=== PATIENT | male | born 1950 | race Caucasian/White ===

== ENCOUNTER 2016-10-16 09:46 | Observation (INO) | payer MEDICARE, BC ==
[~2016-10-16] VITALS: Ht 177.8 cm; Wt 129.0 kg
--- NOTE | ~2016-10-16 | ESTC ---
Cardiac Perfusion Imaging Demographics Patient Name JAH BOONE Gender Male Patient Number [id number] Race Visit Number [id number] Ethnicity Corporate ID Room Number G6301 Accession Number [id number] Height 70 inches Date of 1950 Weight 284 pounds Interpreting Austin Sung Date of study 10/17/2016 Physician Supervising /TAYLOR FLORES Technologist Darío Bass Ordering Physician Sagar Saha Stress Zohra MARTINEZT, A denture laboratory technician RDCS Stress ECG Reading Jed Perez APRN Nurse Carter Block Physician RN Medications Reviewed with Patient prior to Procedure. Procedure Procedure Type: Nuclear Stress Test:Pharmacological, Lexiscan, Cardiolite Stress Test Procedure Start time: 10/17/2016 07:30 Indications: AAA and Dyspnea. Risk Factors The patient risk factors include:former tobacco use, family history of premature CAD, Newly diagnoseddiabetes mellitus, chronic lung disease, dyslipidemia and prior SD . Conclusions Summary Perfusion Images: The overall quality of the study is fair, due to soft tissue attenuation. Left ventricular cavity is noted to be normal on the stress and rest studies. The right ventricle is not visualized and cannot be assessed. Stress SPECT images and Rest SPECT images demonstrate homogenous tracer distribution throughout the myocardium except for a moderate decrease uptake in the area involving the inferior wall consistent with soft tissue attenuation. Gated SPECT imaging reveals normal myocardial thickening and wall motion. The left ventricular ejection fraction was calculated to be 55%. Impression ECG portion of stress test is clinically negative for ischemia by diagnostic criteria. The inferior wall matched defect is consistent with soft tissue attenuation Overall left ventricular systolic function was normal without regional wall motion abnormalities. The findings were discussed with Dr. Petersen. Stress Protocols Resting ECG Normal sinus rhythm. Pre-stress physical exam: Patient assessed by Gayatri FELIPE prior to testing. Predicted HR: 153 bpm HR response: Appropriate BP response: Appropriate Reason for termination:Infusion complete ECG Findings No ECG changes suggestive of ischemia. Arrhythmias No rhythm abnormality. Symptoms Shortness of breath. Complications Procedure complication: None. Stress Interpretation Appropriate hemodynamic response to Lexiscan. No significant ST-T wave changes with Lexiscan. ECG portion is negative for ischemia by diagnostic criteria. Will correlate with nuclear images. Imaging Results Summed scores - Summed stress score: 2 - Summed rest score: 3 - Summed difference score: -1 Stress ejection Ejection fraction:55 % EDV :108 ml ESV :49 ml Stroke volume :59 ml LV mass :132 gr Imaging Protocols Rest Stress Isotope:Tc99m Sestamibi IV Isotope: Tc99m Sestamibi IV Isotope dose:14.9 mCi Isotope dose:46.3 mCi Date:10/17/2016 07:23 Date:10/17/2016 09:07 Technique: SPECT Technique: Gated Supine SPECT Supine IV remains in place after procedure. Scan Time:45-60 minutes post Scan Time:45-60 minutes post injection injection Procedure Medications - Regadenoson (Lexiscan) 0.4 mg IV over 10-15 sec. I.V. 0.4 mg. Medical History Admission Data Admission date: 10/16/2016 Admission Time: 09:46 Hospital Status: Inpatient. Signatures dtt: JOANIE ADAM dtd: 10/17/16 0730 Physician Self Edit
--- NOTE | ~2016-10-16 | CON ---
PATIENT'S NAME: [facility]AH [facility] AGE: 65 Y [address] ROOM: [place] [address] LOCATION: GPCU ADMIT DATE: 10/16/2016 Consultation DISCHARGE DATE: FAMILY PHYSICIAN: PHYSICIAN, UNKNOWN ATTENDING PHYSICIAN: AUGUSTINA MAYER V DATE OF CONSULTATION: 10/16/2016 REFERRING PHYSICIAN: Joel Keith MD REFERRING PHYSICIAN: Augustina Mayer MD. REASON FOR CONSULT: Exertional chest discomfort. HISTORY OF PRESENT ILLNESS: Mr. Victoria is a very pleasant 65-year-old male who has been symptomatic since 4-6 weeks with complaints of exertional chest discomfort. The patient stated that he gets chest tightness even with minimal activity. Also complained of shortness of breath on exertion, especially worse since 1-2 months. The patient stated that he had abdominal surgery about a year ago, and since then, he has not been very active physically. He denied any cough, expectoration, or fever. He had a CT scan at local hospital which showed thoracic aortic aneurysm. He was referred here for further management. REVIEW OF SYSTEMS: The patient denied any recent change in vision. No history of nausea or vomiting. No diarrhea or constipation. No history of fever. No history of cough or expectoration. No history of syncope. History of chest pain and shortness of breath on exertion is present. Review of other systems was essentially negative. PAST MEDICAL HISTORY: Gastroesophageal reflux disease, COPD on inhalers, asthma, he was also hospitalized for pneumonia in August 2015. PAST SURGICAL HISTORY: Appendectomy, cholecystectomy, abdominal resection 2006 and in August 2015. CURRENT MEDICATIONS: See medical record. PERSONAL HISTORY: He quit smoking about 2 years ago. He used to smoke a half to one and half packs of cigarettes per day. Nonalcoholic. PATIENT'S NAME: JAH [facility] AGE: 65 Y [address] ROOM: [place] [address] LOCATION: GPCU ADMIT DATE: 10/16/2016 Consultation DISCHARGE DATE: FAMILY PHYSICIAN: PHYSICIAN, UNKNOWN ATTENDING PHYSICIAN: AUGUSTINA MAYER V FAMILY HISTORY: His both parents had coronary artery disease. His mother had coronary artery disease in her 80s and his father had coronary artery disease in his 70s. SOCIAL HISTORY: The patient is and lives with his . 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 PHYSICAL EXAMINATION: GENERAL: He is awake, alert, and oriented and in no distress. VITAL SIGNS: His pulse rate is 90 per minute, blood pressure is 159/72 mmHg, respiratory rate 20, temperature 97.8. HEENT: His head is atraumatic and normocephalic. He is afebrile. Mucous membrane is wet. NECK: No significant cervical lymphadenopathy is present. No jugular venous distention is present. LUNGS: Clear to auscultation. Breath sounds are diminished at bases. HEART: S1, S2 are audible. They are regular in rate and rhythm with no audible murmur. ABDOMEN: Scar nolasco from previous surgeries are present. Mildly distended. Mild tenderness is present in the right upper quadrant. Bowel sounds are present. EXTREMITIES: Showed no significant pedal edema. LABORATORY DATA: Done at [facility], showed CK 296. CK-MB 2.3. Troponin less than 0.04. Total cholesterol 196, triglycerides 565, HDL 29, LDL 80, AST 66, ALT is 75, TSH 1.73. PSA is 1.06. White blood cell count 7.4, hemoglobin 14.6, platelet count 209. ProBNP is 29. Chest x-ray showed lung hyperinflation suggesting chronic obstructive pulmonary disease. No consolidation was noted on 10/15/2016. ASSESSMENT AND PLAN: 1. Exertional chest discomfort and tightness. The patient has coronary artery disease risk factors including hyperlipidemia, family history of coronary artery disease, obesity, diabetes, and history of tobacco dependence. We will obtain 2D echocardiogram to evaluate left ventricular function and stress test in a.m. He was counseled on coronary artery disease risk factor modification. 2. Hypertriglyceridemia. We will start the patient on fibrates. The patient has mild abnormality in liver function tests which possibly could be secondary to fatty liver. He will need monitoring of liver function tests. 3. Diabetes. PATIENT'S NAME: MELY VICTORIA [facility] AGE: 65 Y [address] ROOM: [place] [address] LOCATION: GPCU ADMIT DATE: 10/16/2016 Consultation DISCHARGE DATE: FAMILY PHYSICIAN: PHYSICIAN, UNKNOWN ATTENDING PHYSICIAN: AUGUSTINA MAYER V 4. Obesity. 5. Chronic obstructive pulmonary disease. 6. Abnormal liver function tests. 7. History of thoracic aortic aneurysm. 8. Hypertension. We will monitor patient on telemetry. We will start the patient on beta blockers and titrate dose as needed for blood pressure control. We will also start patient on aspirin since patient has diabetes. We will make further recommendations depending on the results of EKG, echocardiogram, and stress test. We will follow the patient along with you. Thank you for allowing us in taking part in the care of this pleasant patient. MD SUE MYERS/charlee /[id number] d: 10/16/16 1428 t: 10/23/16 1602, CONSULTATION REPORT
--- NOTE | ~2016-10-16 | HP ---
PATIENT'S NAME: MELY TYSON [facility] AGE: 65 Y [address] ROOM: [address] [place], [place] [address] LOCATION: GPCU ADMIT DATE: 10/16/2016 History & Physical DISCHARGE DATE: FAMILY PHYSICIAN: PHYSICIAN, UNKNOWN ATTENDING PHYSICIAN: AUGUSTINA MAYER V DATE OF SERVICE: CHIEF COMPLAINT: Shortness of breath. HISTORY OF PRESENT ILLNESS: The patient is a transfer from [facility]. This is a 65-year-old gentleman who carries a past medical history of COPD diagnosed several years ago, though apparently never had PFTs done. He presented to [facility] yesterday with complaints of worsening dyspnea on exertion. The patient reports that he has been having progressive shortness of breath, and at this point, he can only walk very minimal amounts without developing shortness of breath. The patient also admits that he has occasionally developed chest tightness when he walks for an extended period of time. It should be noted, that he has been quite sedentary recently and has gained 40 pounds after undergoing an abdominal surgery. He was told to minimize his activity, that was a hernia surgery. A workup at the outside facility included an ambulatory heart rate and pulse oximetry monitoring which showed that the patient that after having walked 60- 80 feet, the patient's heart rate jumped into 130s, though his oxygen saturations remained in mid 90s and he was quite symptomatic. I was able to replicate those findings here after the patient walked approximately 160 feet. He was tachycardic into 120s, but his saturations were was 96%. He has never had a stress test, formal PFTs, or an echocardiogram recently. He denies any fevers or chills. No nausea, vomiting, or diarrhea. He does admit to occasional lower extremity edema associated with eating salty foods. When I asked the patient about a raspy voice, he reports that he has been having a raspy voice for the last 3 days. At the outside facility, the patient was started on treatment for COPD with Solu-Medrol and Levaquin. He also had a CAT scan of his chest to rule out a PE. That was negative and demonstrated a 4.3 cm ascending aortic aneurysm. The remainder of his lab work up was unremarkable with a negative proBNP, normal electrolytes, and an EKG showing sinus tachycardia with right bundle- branch block. PATIENT'S NAME: JAH [facility] AGE: 65 Y [address] ROOM: [place] [address] LOCATION: GPCU ADMIT DATE: 10/16/2016 History & Physical DISCHARGE DATE: FAMILY PHYSICIAN: PHYSICIAN, UNKNOWN ATTENDING PHYSICIAN: AUGUSTINA MAYER V REVIEW OF SYSTEMS: All systems have been reviewed and are negative aside for pertinent positives as mentioned above. PAST MEDICAL HISTORY: 1. Recently diagnosed type 2 diabetes. 2. COPD. 3. Obstructive sleep apnea, on CPAP at 11 cm of water. 4. Recently diagnosed hypertension. PAST SURGICAL HISTORY: Significant for several hernia repairs with mesh in place. SOCIAL HISTORY: The patient carries approximately 25-pack years of tobacco use and quit several years ago. 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 FAMILY HISTORY: Significant for coronary artery disease of late onset on both sides of his family. CURRENT MEDICATIONS: Include, 1. Spiriva. 2. Symbicort. 3. Metformin. 4. Levaquin. 5. Solu-Medrol. 6. Loratadine. 7. Albuterol p.r.n. 8. Omeprazole. PHYSICAL EXAMINATION: VITAL SIGNS: His blood pressure is 130s over 80s. Heart rate is in the 90s and regular, but does go up to 120s with mild ambulation. Saturating 96% on room air. Afebrile. Respirations are 16, going up into high 20s with ambulation. GENERAL: Appears as a morbidly obese, elderly male, in no acute distress. EYES: Pupils are equal and reactive to light. LYMPHATIC: Shows no cervical lymphadenopathy. ENT: Reveals no stridor. ENDOCRINE: Shows no thyromegaly. LUNGS: Clear to auscultation in all cochran. HEART: Shows regular rate and rhythm without appreciable murmurs, gallops, or PATIENT'S NAME: JAH [facility] AGE: 65 Y [address] ROOM: [place] [address] LOCATION: GPCU ADMIT DATE: 10/16/2016 History & Physical DISCHARGE DATE: FAMILY PHYSICIAN: PHYSICIAN, UNKNOWN ATTENDING PHYSICIAN: AUGUSTINA MAYER V rubs. NECK: JVD cannot be appreciated. EXTREMITIES: There is no lower extremity edema. GI: Reveals abdomen is soft, nontender, nondistended. : Reveals no costovertebral angle tenderness. VASCULAR: Reveals 2+ pedal pulses. MUSCULOSKELETAL: Shows unremarkable muscles and joints. SKIN: Warm and dry. PSYCHIATRIC: Reveals appropriate mood, cognition, and affect. DIAGNOSTIC DATA: Studies from the outside facility significant for an EKG which shows sinus tachycardia in 111 with right bundle-branch block, but no ST-segment or T-wave abnormalities. Lab results are significant for a hemoglobin A1c of 7.7, TSH of 1.73, mildly elevated LFTs, uric acid 9.4. Negative cardiac enzymes. ProBNP of 29. A CT of his chest with contrast, which demonstrates a 4.3 cm ascending aortic aneurysm. ASSESSMENT AND PLAN: This is a 65-year-old male who is being admitted with dyspnea on exertion, exertional chest pain, and exertional tachycardia. The underlying etiology for his presentation at this point remains unclear. Given the presence of a raspy voice, he might have some sort of a vocal cord dysfunction and we will request an ENT consultation. We will get a 2-dimensional echocardiogram. Given the presence of exertional chest pain, we will get an exercise stress test as he has never had one and he has multiple risk factors for coronary artery disease. We will also monitor him on telemetry and a cardiology consultation has already been requested in transfer. History of chronic obstructive pulmonary disease. The patient has never had formal PFTs and I think he will benefit from those. However at this point, he has received steroids as well as antibiotics and is on bronchodilators and I believe that at this point, pulmonary function test may not be helpful. Once his inpatient workup is complete, we will consider a further pulmonary evaluation. Recently diagnosed diabetes. We will hold off on patient's metformin as he did have a CT with contrast. We will put him on a sliding scale for the time being. Additional management will depend on clinical course Time dedicated to this patient's encounter is 35 minutes. PATIENT'S NAME: MELY TYSON [facility] AGE: 65 Y [address] ROOM: [place] [address] LOCATION: GPCU ADMIT DATE: 10/16/2016 History & Physical DISCHARGE DATE: FAMILY PHYSICIAN: PHYSICIAN, UNKNOWN ATTENDING PHYSICIAN: AUGUSTINA MAYER V MD TABITHA DYKES/modl /[id number] D: [id number] T: [id number] HISTORY & PHYSICAL
--- NOTE | ~2016-10-16 | DS ---
PATIENT'S NAME: MELY TYSON [facility] AGE: 65 Y [address] ROOM: [address] [place] [address] LOCATION: GPCU ADMIT DATE: 10/16/2016 Discharge Summary DISCHARGE DATE: 10/17/2016 FAMILY PHYSICIAN: Justina Sullivan APRN ATTENDING PHYSICIAN: Werner Petersen V DISCHARGE DIAGNOSES: 1. Chest pain. 2. Dyspnea on exertion. 3. Efo-rrnbqyo-mrtztcgnb diabetes mellitus. 4. Morbid obesity. 5. Asthma/chronic obstructive pulmonary disease. 6. Reflux. REASON FOR ADMISSION: "I just couldn't get my breath." Because of his risk factors and the chest pain, he got a stress test today, which was negative suggesting that most of his symptoms may have been from his lung disease. He and I spoke for a period of time and it sounds like lack of exercise and increasing appetite is the biggest reason for his weight gain and his diabetic diagnosis, and so we discussed changes in his medical regimen, which will be reflected in the nursing med recon form. LABORATORY DATA: Accu-Cheks have all been under 200 and above 100. Electrolytes were fine. His kidney function was normal with GFR greater than 60. ProBNP was normal. Hemoglobin A1c was 7.6. He had a Cardiolite stress test with Dr. Avila. Overall quality of the study was fair with normal left ventricular function and some soft tissue attenuation was the only finding. The EKG portion of the stress test was completely normal. DISCHARGE INSTRUCTIONS: At discharge, activity will be increased as tolerated. He is to treat his asthma/COPD aggressively to avoid shortness of breath and he already treats his reflux. Diet will be low carb consistent with diabetic recommendations. MEDICATIONS: Per the nursing med recon form. FOLLOWUP: Will be with his primary doctors at the [facility] and anybody he can see up at [facility] in [place], [place]. Currently, he also has a physician in [place], so we will have him decide whom he wants to see long- term and stay with them. Discharge preparations took > 30 minutes. PATIENT'S NAME: MELY TYSON [facility] AGE: 65 Y [address] ROOM: [address] [address] LOCATION: GPCU ADMIT DATE: 10/16/2016 Discharge Summary DISCHARGE DATE: 10/17/2016 FAMILY PHYSICIAN: Justina Sullivan APRN ATTENDING PHYSICIAN: Werner Petersen MD CCWinnie/modl /[id number] d: 10/18/16 0414 t: 10/18/16 0824, DISCHARGE SUMMARY
--- NOTE | ~2016-10-16 | ECHO ---
Transthoracic Echocardiography Report (TTE) Demographics Patient Name MELY TYSON Date of Study 10/16/2016 Patient Number [id number] Visit Number [id number] Date of 1950 Room Number G6301 Gender Male Number Age 65 year(s) Referring Nicola Caldera V Telecommunications Engineer Karma Weir, Physician RT,RVT,RDCS Ayaz Howard Physician Interpreting Sagar Saha Duty Manager Physician Leopoldo PERRY Supervising Ordering Nicola West MD/MLP Physician Nurse Stress Elementary Math Tutor Conclusions Contractility Score Summary Normal Left Ventricular contractility was noted. Summary Technically difficult exam due to body habitus. Definity contrast was administered to better delineate endocardial borders. The estimated left ventricular ejection fraction is 60%. The left ventricle is normal in size . Mild concentric left ventricular hypertrophy. Diastolic assessment reveals Grade II pseudonormal diastolic function . Mildly dilated right ventricle. No significant valvular abnormalities. Procedure Type of Study TTE procedure:2D Echocardiogram, M-Mode, Doppler , Color Doppler, Contrast study. Procedure Date Date: 10/16/2016 Start: 02:58 PM Study Location: Inpatient Portable Technical Quality: Limited visualization due to body habitus. Indications:Dyspnea with exertion. Appropriate Use Criteria: 9 Patient Status: Routine Contrast Medium: Definity. Amount - 3 ml HR: 89 bpm BP: 136/63 mmHg M-Mode/2D Measurements LV Diastolic Dimension: 4.43 cm LV Systolic Dimension: 2.83 cm LV Septum Diastolic: 1.23 cm LV PW Diastolic: 1.21 cm AO Root Dimension: 3.2 cm Cardiac Output: 6.43 l/min LA Dimension: 3.8 cm LVOT: 2 cm LVOT VTI: 23 cm RV Base: 4.53 cm LV Stroke volume: 72.22 ml RV Length: 7.27 cm TAPSE: 2.88 cm TDI-S': 9.87 cm/s Doppler Measurements AV Peak Velocity: 1.46 m/s MV Peak E-Wave: 0.99 m/s AV Peak Gradient: 8.53 mmHg MV Peak A-Wave: 0.89 m/s AV Mean Gradient: 6 mmHg MV E/A Ratio: 1.11 LVOT Peak Velocity: 1.26 m/s MV P1/2t: 70 msec MV Deceleration Time: 243 msec TR Gradient:23.04 mmHg PV Peak Velocity: 1.19 m/s Estimated RAP:8 mmHg PV Peak Gradient: 5.66 mmHg Estimated RVSP: 31 mmHg Estimated PASP: 31.04 mmHg E' Septal Velocity: 0.07 m/s A' Septal Velocity: 0.1 m/s E' Lateral Velocity: 0.06 m/s A' Lateral Velocity: 0.1 m/s Findings Left Ventricle The left ventricle is normal in size . Mild concentric left ventricular hypertrophy. Diastolic assessment reveals Grade II pseudonormal diastolic function . Right Ventricle Mildly dilated right ventricle. Normal right ventricular function. Left Atrium Normal left atrial size. Right Atrium Normal right atrial size. Unable to visualize IVC due to poor acoustical window. Mitral Valve Mild mitral annular calcification. Aortic Valve Normal aortic valve structure and function. Tricuspid Valve Normal tricuspid valve structure and function. Trivial tricuspid regurgitation by color Doppler. Pulmonic Valve The pulmonic valve is not well visualized. Pericardial Effusion No evidence of pericardial effusion. Miscellaneous Visualized portions of the aortic root and ascending aorta appear normal in size. Pleural Effusion No evidence of pleural effusion. Contractility Score LV regional wall motion:(0-Non visualized 1-Normal 2-Hypokinesis 3-Akinesis 4-Dyskinesis 5-Aneurysm) Signature dtt: Joel Keith dtd: 10/16/16 4982 Physician Self Edit
--- NOTE | ~2016-10-16 | CON ---
PATIENT'S NAME: [facility] AGE: 65 Y [address] ROOM: [address] [address] LOCATION: GPCU ADMIT DATE: 10/16/2016 Consultation DISCHARGE DATE: FAMILY PHYSICIAN: PHYSICIAN, UNKNOWN ATTENDING PHYSICIAN: AUGUSTINA MAYER V DATE OF CONSULTATION: 10/16/2016 REFERRING PHYSICIAN: Joel Keith MD CHIEF COMPLAINT: Hoarseness. HISTORY OF PRESENT ILLNESS: The patient is a 65-year-old gentleman admitted to [facility] with aortic aneurysm. The patient has had voice change. He is a nonsmoker. Denies other head or neck complaints such as difficulty or pain with swallowing, coughing up blood, or ear pain. PAST MEDICAL HISTORY: Documented and reviewed in the chart. SOCIAL HISTORY: Documented and reviewed in the chart. FAMILY HISTORY: Documented and reviewed in the chart. REVIEW OF SYSTEMS: Documented and reviewed in the chart. PHYSICAL EXAMINATION: GENERAL: A pleasant, 65-year-old gentleman. HEENT: Head is otherwise atraumatic and normocephalic. Ears are clear. Nasal mucosa is intact. There is a septal deviation to the left. Oral cavity including lips, gums, tongue, buccal mucosa, tonsillar fossa clear. NECK: No cervical adenopathy, thyromegaly, or thyroid region abnormality. PROCEDURE NOTE: 4% lidocaine spray was used to anesthetize the right side of the nose. The scope was introduced into the right nasal cavity and passed into the nasopharynx, which was clear. The hypopharynx was clear. Vocal cords were mobile. No lesions or masses were noted. IMPRESSION: Voice change with no identifiable laryngeal abnormality. PATIENT'S NAME: JAH [facility] AGE: 65 Y [address] ROOM: [address] [address] LOCATION: GPCU ADMIT DATE: 10/16/2016 Consultation DISCHARGE DATE: FAMILY PHYSICIAN: PHYSICIAN, UNKNOWN ATTENDING PHYSICIAN: AUGUSTINA MAYER V PLAN: Reflux precautions, reassurance, and see back as needed. JESUS G YOVANNY, MD DGO/modl /[id number] d: 10/16/16 1900 t: 10/23/16 1821, CONSULTATION REPORT
--- NOTE | 2016-10-16 10:57 | NUR ---
Patienti s 65 yo male admitted this am from [facility] with aortic aneurysm. patient is very pleasant to visit with, is hard of hearing but does not use his hearing aides. pt states he has not felt the best for about 2 weeks, states he got a pneumovax shot last week and has been worse ever since. during the night last night he got more short of breath and went to the ER. patient has saline locks in both forearms without erythema or edema noted at sites. patient states it was very difficult for them to get an IV in him, had to poke him several times. Education is given as documented. patient denies questions. pneumatics are on bilat. patient ana well. rests quietly. call light in reach. report is given to ARVIN Chiu.
--- NOTE | 2016-10-16 13:12 | NUR ---
Introducd self and purpose of heart healthy education and care transitions. Patient known to me from admission last year. Calendar given, information reviewed, verbalized understanding. Provided scale, BP cuff, and SpO2 last year by [employer], reports she continues to monitor her VS daily.
[2016-10-16] MEDS ORDERED: CLARITIN10 MG PO (13:55)
[2016-10-16] MEDS ORDERED: SPIRIVA HANDIHA1 KIT INH (13:56)
[2016-10-16] MEDS ORDERED: PROTONIX40 MG PO (13:56)
[2016-10-16] MEDS ORDERED: SYMBICORT 16010.2 GM INH (13:56)
[2016-10-16] MEDS ORDERED: DUONEB INH (13:57)
[2016-10-16] MEDS ORDERED: TYLENOL EXTRA500 MG PO ×2 (13:58)
[2016-10-16] MEDS ORDERED: TYLENOL PM EX-1 EACH PO (13:59)
[2016-10-16] MEDS ORDERED: ADVIL200 MG PO (13:59)
[2016-10-16 14:00] LABS: ANION GAP 17.1 (10.0-19.0); BLOOD UREA NITROGEN 17 mg/dL (6-24); CALCIUM 9.3 mg/dL (8.5-10.5); CHLORIDE 105 mMol/L (96-110); CO2 23 mMol/L (22-32); CREATININE 1.1 mg/dL (0.6-1.3); ESTIMATED GFR (MDRD EQUATION) > 60; MAGNESIUM 2.2 mg/dL (1.3-2.6); PHOSPHORUS 3.2 mg/dL (2.5-4.9); POTASSIUM 4.1 mMol/L (3.7-5.1); SODIUM 141 mMol/L (135-145)
--- NOTE | 2016-10-16 16:16 | NUR ---
Significant Event: AOx3. SBP 130s-150s, tachycardic at times when up walking. VS otherwise WNL on room air. Lungs dim throughout. Bowel sounds hypoactive. C/o discomfort in ambulance per EMS but no c/o pain since arriving. Ate lunch this afternoon. ENT consult for c/o hoarseness and cough. Austin saw and multiple tests ordered for tomorrow. Up ad akira, steady on feet. Ambulates to waiting room to see family and tolerates well. Echo and EKG complete this afternoon. Pleasant and cooperative. Follow up: NPO at midnight for stress test in a.m.
--- NOTE | 2016-10-17 05:04 | NUR ---
Significant Event: Patient is alert/oriented x3. On room air and CPAP at night. Vital signs stable. Denies any pain. Up ad akira in room. NPO since midnight for stress test and abdominal ultrasound today. Follow up: Lexiscan stress test and abdominal ultrasound today.
--- NOTE | 2016-10-17 15:06 | NUR ---
Significant Event: pt had lexiscan today, await results. US abdomen done also today. Pt amb in room and has family here with him. Pt own cpap on when sleeps today. No c/o pain. Dr Avila to read stress and dr Vera attending Follow up:
--- NOTE | 2016-10-17 15:23 | NUR ---
Introduced self and role of care management to pt and . They live up in [facility] and daughter lives in [facility]. Plan is to get the tests done tonite and may or may not go home today. I did explained the TRAMMELL to him and paper signed. At this time plans on home and denies needs.
[2016-10-17] MEDS ORDERED: LOPRESSOR25 MG PO (17:44)
[2016-10-17] MEDS ORDERED: GLUCOPHAGE500 MG PO (17:48)
[2016-10-17] MEDS ORDERED: TRICOR 160 MG160 MG PO (18:00)
--- NOTE | 2016-10-17 18:32 | NUR ---
D-dr martinez ok dc, dr rogers said stress test neg. i-nurse did teaching on all meds with new ones explained, info printed on all meds, rx given, info given on liver and aneurysm, pt took his cpap, ivs dcd by mayda leung, appt to be set by pt, r-pt has no more questions, p-ta took pt to family car
== END 2016-10-17 19:25 | disposition disaster alternative care site (69) ==
LOC: GPCU 09:46
PROVIDERS: ADMIT Internal Medicine
DX: R07.89 Other chest pain (principal); E11.9 Type 2 diabetes mellitus without complications; R06.02 Shortness of breath; J44.9 Chronic obstructive pulmonary disease, unspecified; K21.9 Gastro-esophageal reflux disease without esophagitis; E78.1 Pure hyperglyceridemia; G47.33 Obstructive sleep apnea (adult) (pediatric); I10 Essential (primary) hypertension; R79.89 Other specified abnormal findings of blood chemistry; Z87.891 Personal history of nicotine dependence; Z90.49 Acquired absence of other specified parts of digestive tract; Z98.890 Other specified postprocedural states
CPT/HCPCS: A9500; G0378; J2785; Q9957

== ENCOUNTER 2017-03-30 05:00 | Inpatient (IN) | payer MEDICARE, BC ==
[~2017-03-30] VITALS: Ht 177.8 cm; Wt 121.5 kg
--- NOTE | ~2017-03-30 | DS ---
PATIENT'S NAME: MELY TYSON [facility] AGE: 66 Y [address] ROOM: [address] [place] [id number] LOCATION: [facility] ADMIT DATE: 03/30/2017 Discharge Summary DISCHARGE DATE: 04/03/2017 FAMILY PHYSICIAN: FRAN RAPHAEL APRN ATTENDING PHYSICIAN: Sana Marti CONSULTING PHYSICIANS: Pollo Matute MD, Gastroenterology and Dennis Reinoso MD General Surgery. DISCHARGE DIAGNOSES: 1. Partial small bowel obstruction versus other etiology unknown. 2. Abdominal pain, resolving. 3. Hypertension. 4. Obesity. 5. Obstructive sleep apnea, continuous positive airway pressure compliant. 6. Diabetes type 2. 7. Recent weight loss. DISCHARGE MEDICATIONS: 1. Metoprolol 25 mg p.o. twice daily. 2. Protonix 40 mg p.o. q.d. 3. Spiriva 1 vial INH q.d. 4. Loratadine 10 mg p.o. q.d. p.r.n. seasonal allergies. 5. Symbicort 160/4.5 mcg 2 puffs INH twice daily. 6. DuoNeb 1 vial INH q.i.d. p.r.n. shortness of breath. 7. APAP 1000 mg p.o. q.6 hours p.r.n. pain. 8. APAP 500 mg p.o. q.h.s. 9. Tylenol/diphenhydramine 1 tablet p.o. q.h.s. 10. Metformin 500 mg p.o. twice daily. 11. Tricor 160 mg p.o. twice daily. HISTORY AND HOSPITAL COURSE: Please refer to the admitting H and P dictated by Dr. Marti for more detail on the patient's presentation. The patient was admitted secondary to abdominal pain. White count upon admission was 14.2, hemoglobin 14.2, MCV 92, platelets 221 with 77% segs and 11 lymphocytes. CMP was really unremarkable. LFTs within normal limits. BUN 13, creatinine 0.8, GFR greater than 90. The patient was somewhat dehydrated in the ER. The laboratories just dictated were following. Some gentle hydration overnight. NG tube was placed to suction. Ciprofloxacin and Flagyl were also initiated. His stool was sent for studies including C. diff. General Surgery was consulted early in the case given the patient's history of previous abdominal surgeries. A CT scan was done at an outside facility, which did show what was thought to be a developing small bowel obstruction. The patient did not want to keep the NG tube in place. The NG tube was ultimately pulled and not replaced. The patient continued to have some distention along with flatus. PATIENT'S NAME: MELY TYSON [facility] AGE: 66 Y [address] ROOM: [address] [address] LOCATION: [facility] ADMIT DATE: 03/30/2017 Discharge Summary DISCHARGE DATE: 04/03/2017 FAMILY PHYSICIAN: FRAN RAPHAEL APRN ATTENDING PHYSICIAN: Sana Marti General Surgery seen the patient in consultation, and there was a question if this was an inflammatory versus infectious process, but not necessarily mechanical obstruction. His stools have slowed upon admission. The NG actually had been replaced after pulled by the patient. The patient continued to have decreased in amount of stool while here. He did continue to have a lot of gas. Medical records from [place] were obtained from where he had his last surgery. On 03/04/2016, the patient did undergo an exploratory laparotomy with lysis of adhesions and ventral incision hernia repair. The pathology from this showed fibrous adhesions and acute inflammation and focal ischemic changes. Gastroenterology was then consulted on 03/31/2017. After seen by Gastroenterology, they felt that we could discontinue the NG tube and begin clear liquids. There was plan at that point to pursue EGD and colonoscopy. That afternoon after having the NG tube out, the patient became quite distended. Abdominal x-rays were obtained and were compared to that from 03/29 and 03/30. There were air filled dilated loops of small bowel, similar to previous, and gas within the nondilated colon, no free air. At that point, the impression was partial small bowel obstruction versus ileus without significant change. Ambulation was encouraged, the patient cooperated nicely. He did have a few incontinent loose stools, again continued with lots of flatus. Stool cultures were coming back as negative for Shigatoxin 1 and 2 and stool culture showed normal adilia. Negative for fecal wbc's and negative for C. diff. We continued conservative management at this point closely with Dr. Matute and felt this was continued to have the presentation of a partial small bowel obstruction. The patient continued to have abdominal bloating. He did have occasional small BMs, "explosive" gas continuing throughout his hospitalization. The patient was still n.p.o. at this point. Clear liquid was finally started on 04/02/2017 after being less bloated on that morning and continuing to have some BMs. The patient did well with clear liquids and this was continued to be advanced to full. The IV Cipro and Flagyl were discontinued on the and ultimately on 04/03/2017, it is felt the patient could discharge home that afternoon. He was tolerating a soft surgical diet at that point and was continuing to have small BMs and continued gas. The patient was counseled on what he should not eat as far as dietary choices including raw vegetables and dairy. Ultimately, the patient was discharged on 04/03/2017 with a plan to follow up with Dr. Matute with Gastroenterology here in [place] after a CAT scan that morning, that will be for followup on the small-bowel thickening. The patient is being discharged home on 04/03/2017. He is to follow up with Dr. Matute on Friday, 04/22, with a CAT scan at 2:00 p.m. at 1245 hours and an appointment with Dr. Matute for followup after. The patient voiced understanding. The discharge for this patient took 35 minutes. PATIENT'S NAME: MELY TYSON [facility] AGE: 66 Y [address] ROOM: [place] [address] LOCATION: [facility] ADMIT DATE: 03/30/2017 Discharge Summary DISCHARGE DATE: 04/03/2017 FAMILY PHYSICIAN: FRAN RAPHAEL APRN ATTENDING PHYSICIAN: Sana Marti BRUNILDA COLON PA-C FOR MD EUGENAI GOLDMAN/charlee /[id number] CC: MATTEO SWANN MD d: 04/03/17 2211 t: 04/14/17 1426, DISCHARGE SUMMARY
--- NOTE | ~2017-03-30 | HP ---
PATIENT'S NAME: MELY VICTORIA [facility] AGE: 66 Y [address] ROOM: [id number] [place], [place] [address] LOCATION: [facility] [facility] ADMIT DATE: 03/30/2017 History & Physical DISCHARGE DATE: FAMILY PHYSICIAN: PHYSICIAN, UNKNOWN ATTENDING PHYSICIAN: CLEMENCIA CURRIE DATE OF SERVICE: 03/30/2017 CHIEF COMPLAINT: Diarrhea, abdominal pain, rule out small-bowel obstruction. REVIEW OF RECORD: Mr. Victoria is a 66-year-old gentleman who was transferred down from [facility] after presenting on Friday evening with abdominal pain, crampy in nature, some nausea/vomiting over the last several days. He also reports 5- week history of diarrhea, explosive. He also has associated 25-pound weight loss, some chills, but no documented fevers. Dr. Vera admitted him to [facility] after plain films showed multiple air-fluid levels. His white count was elevated at 16,000. He did not have a surgical abdomen, but he was admitted and underwent an orogastric tube insertion and somewhat relieved. The following day, he had a CT scan, which I reviewed with our radiologist. It shows fatty liver changes. He shows lot of loops of small bowel with thickened diameter without any type of mechanical obstruction. The previous anastomosis is seen, but it has no stricture. There is a lot of air in the colon. The patient states today on my review, his stomach pains maybe a little better, but still present, like it has been for weeks. He is having diarrhea and that was evident when I went in the room; he was still passing flatus. His NG put out initially 900, but now it has only been a couple of 100 since admission here. The patient denies any abdominal trauma. He has a significant history of an open appendectomy and cholecystectomy years ago. He says 9 years ago he had an exploratory laparotomy and just a band adhesion was found. He then states that postop he had a dehiscence of his wound and developed a large hernia. Two years ago up in [facility], he says he underwent another exploratory laparotomy, resection of a foot of small intestine and then also a hernia repair with mesh, but I find that strange to have a bowel resection and mesh repair, but we are just going to try to get the op reports. My more interesting question is what was the pathology of the small bowel. The patient, otherwise, prior to this has had no problems with chronic diarrhea. He has had no history of inflammatory bowel disease nor anybody in his family. He has not traveled outside the country. 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 MEDICATIONS: 1. Lopressor. 2. Metformin. PATIENT'S NAME: MELY VICTORIA [facility] AGE: 66 Y [address] ROOM: [address] [place], [place] [address] LOCATION: [facility] [place] ADMIT DATE: 03/30/2017 History & Physical DISCHARGE DATE: FAMILY PHYSICIAN: PHYSICIAN, UNKNOWN ATTENDING PHYSICIAN: CLEMENCIA CURRIE 3. Protonix. 4. Spiriva. 5. Ventolin inhaler. 6. Symbicort. 7. Plavix. OPERATIONS: Carotids endarterectomy. He has had open cholecystectomy, open appendectomy. He has had an exploratory laparotomy with lysis of adhesions, possible enterectomy. He has had incisional hernia repair with mesh placement of his abdominal wall. He has had a colonoscopy within the last 3 years. ILLNESSES: 1. Hypertension. 2. Type 2 diabetes. 3. Obesity. 4. COPD with sleep apnea. 5. Diverticulosis. ALLERGIES: IODINE, BETADINE, OMNICEF, PERCOCET. 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 Denies alcohol abuse. FAMILY HISTORY: His sibling of lung cancer. Youngest daughter has diabetes. His mother of diabetes and father of congestive heart failure. Paternal grandmother of leukemia. REVIEW OF SYSTEMS: He denies any documented fevers. Denies any change in his vision or hearing. Denies any dysphagia. No emesis of blood. No shortness of breath of acute nature. He says he has had a 25-pound weight loss. Denies any chest pain radiating to his neck or arm. Denies any swollen joints or peripheral edema. No dysuria, hematuria, or pneumaturia. Denies any gross blood in his stools. PHYSICAL EXAMINATION: GENERAL: He is a 66-year-old gentleman who appears to be in mild distress. HEENT: Head is normocephalic. His sclerae are nonicteric. His mucous membranes are dry. He has an orogastric tube in his mouth that he swallowed himself. NECK: Supple. There is no thyromegaly or adenopathy to palpation. LUNGS: Clear. No audible wheezing. PATIENT'S NAME: MELY VICTORIA [facility] AGE: 66 Y [address] ROOM: [place] [address] LOCATION: [facility] [place] ADMIT DATE: 03/30/2017 History & Physical DISCHARGE DATE: FAMILY PHYSICIAN: PHYSICIAN, UNKNOWN ATTENDING PHYSICIAN: CLEMENCIA CURRIE ABDOMEN: Morbidly obese. It is soft, but it is diffusely tender mostly across the epigastrium. No evidence of ecchymosis or abdominal wall hernia recurrence. He has no peritoneal findings and his abdominal muscles may be sore from his last week of vomiting. EXTREMITIES: He has 2/2 femoral and dorsalis pedis pulses. No peripheral edema. IMPRESSION: A 66-year-old gentleman with a 5-week history of abdominal pain, nausea, diarrhea, weight loss, chills, who presented to [facility] with increasing pain, nausea, and vomiting over the last 5 days. He is still passing flatus, has 3 to 5 foul smelling liquid stools a day and has air-fluid levels on x-ray. His white count, leukocytosis, and a CT scan shows thickening of small bowel loops. My top 3 differential would be infectious enteritis, inflammatory enteritis, malignancy though no other adenopathy is evident to support lymphoma, etc. Does not appear to be ischemic in nature and there appears to be no mechanical obstruction. The workup is under way. Gastroenterology will be involved and will follow if in case some complication develops. Thank you very much for allowing me to participate in his care. ANDRIA WITT MD WTS/modl /[id number] D: 3 T: 951 HISTORY & PHYSICAL
--- NOTE | ~2017-03-30 | CON ---
PATIENT'S NAME: MELY TYSON [facility] AGE: 66 Y [address] ROOM: [address] [place], [place] [address] LOCATION: [facility] ADMIT DATE: 03/30/2017 Consultation DISCHARGE DATE: FAMILY PHYSICIAN: FRAN RAPHAEL APRN ATTENDING PHYSICIAN: CLEMENCIA CURRIE DATE OF CONSULTATION: 03/31/2017 HOSPITAL CONSULTATION NOTE REASON FOR CONSULTATION: Diarrhea, weight loss. HISTORY OF PRESENT ILLNESS: This is a very pleasant 66-year-old gentleman with past medical history significant for hypertension, insulin-dependent diabetes mellitus, and history of laparotomy with bowel resection in the past. The patient presented to [facility] with acute abdominal pain in the center that state that it is "gassy" in nature. This has been present for approximately 3 weeks prior to evaluation. The patient also states that he has had approximately 5-week history of intermittent loose watery diarrhea with associated emesis. He does state that bowel movements were very foul smelling and described each bowel movement as "explosive." He did complain of night awakening symptoms. He did also state that at some point, he had fever and chills though this has resolved. The patient was seen in [place] with a CT completed that showed fatty liver changes and small-bowel loops thickened in diameter without any type of mechanical obstruction. The patient was originally transferred to [facility] for possible obstruction though Surgery has evaluated this and they feel that this is not the case. A previous anastomosis was seen without stricture. There was a lot of air in the colon. An NG tube had been placed with good output initially of 900 mL though this has dwindled to 100 mL since the patient has been here. Denies any abdominal trauma. Does have a significant history of open appendectomy, cholecystectomy approximately 9 years ago. He also had exploratory laparotomy with lysis of band adhesions. He also approximately 2 years ago states that he underwent an exploratory laparotomy resection of 1 foot of small intestine with hernia repair and mesh, as these records have been requested for. The patient denies any known history of inflammatory bowel disease. No family history of inflammatory bowel disease. He denied any visual blood in the stool though states that his stool workup did show positive for blood in [place]. All stool workup completed at [facility] including culture, Shiga toxins, O and P, and white blood cells have been negative. The patient denies any acute chest pain, chest pressure, shortness of breath, fever, chills, or night sweats. He does state that he has had an approximately 25-pound weight loss. He does state that the abdominal pain is much less from admission though PATIENT'S NAME: JAH [facility] AGE: 66 Y [address] ROOM: [address] [address] LOCATION: [facility] ADMIT DATE: 03/30/2017 Consultation DISCHARGE DATE: FAMILY PHYSICIAN: FRAN RAPHAEL APRN ATTENDING PHYSICIAN: CLEMENCIA CURRIE intermittently will experience, crampy in nature. PAST MEDICAL HISTORY: 1. Hypertension. 2. Type 2 diabetes. 3. Obesity. 4. COPD with sleep apnea. 5. History of diverticulosis. PAST SURGICAL HISTORY: 1. Carotid endarterectomy. 2. Open cholecystectomy. 3. Open appendectomy. 4. Exploratory laparotomy with lysis of adhesions. 5. Possible enterectomy. 6. He also had incisional hernia repair with mesh placement of his abdominal wall. 7. He states that he had an upper endoscopy approximately 8 or 9 years ago. As far as his colonoscopy, he is unsure exactly of timing though states possibly within the last 3 years. 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 He is and has two daughters. Quit smoking several years ago. Denies any alcohol use. FAMILY HISTORY: The patient's sibling of lung cancer. The patient's youngest daughter has diabetes. The patient's mother of diabetes, and his father from congestive heart failure. Paternal grandmother had leukemia. ALLERGIES: IODINE, BETADINE, OMNICEF, AND PERCOCET. CURRENT MEDICATIONS: Please refer to the medication administration record. REVIEW OF SYSTEMS: All point review of systems was completed. All were negative except for those identified in the history of present illness. PHYSICAL EXAMINATION: GENERAL: A pleasant, 66-year-old gentleman lying in bed, who appears to be in no acute distress. VITAL SIGNS: Temperature 98.0, pulse of 83, respirations are 16, blood pressure 123/66, and oxygen saturations 94% on room air. PATIENT'S NAME: JAH [facility] AGE: 66 Y [address] ROOM: [address] [address] LOCATION: [facility] ADMIT DATE: 03/30/2017 Consultation DISCHARGE DATE: FAMILY PHYSICIAN: FRAN RAPHAEL APRN ATTENDING PHYSICIAN: CLEMENCIA CURRIE SKIN: [place], warm, and dry. No jaundice. HEENT: Head is normocephalic and atraumatic. Pupils are equal, round, and reactive to light. Sclerae are clear. Nonicteric. Oral mucosa is pink and moist. No thyromegaly. NECK: Soft and supple. CARDIOVASCULAR: Regular. Normal S1 and S2. RESPIRATORY: Respirations even and unlabored. LUNGS: Clear to auscultation. ABDOMEN: Soft, round, nontender, and mildly distended. Bowel sounds are positive. MUSCULOSKELETAL: No muscle weakness or atrophy. EXTREMITIES: No edema. NEUROLOGIC: Grossly nonfocal. LABORATORY DATA AND IMAGING STUDIES: Labs and Diagnostics: Laboratory obtained at [facility] did include a lactate of 1.5. White blood cell count initially elevated at 16.4, now 14.2, hemoglobin of 14.2, hematocrit of 42.5, and platelets of 221,000. Chemistry panel includes a glucose of 108, BUN of 13, creatinine 0.8, sodium 138, potassium 3.7, chloride of 106, CO2 of 25, albumin of 2.7, AST of 15, ALT of 19, alkaline phosphatase of 45, and total bilirubin of 0.5. Hemoglobin A1c was 5.9. Lipase was 299. Procalcitonin was 0.11. Also workup again has been negative for culture, Shiga toxins, fecal white blood cells, C. difficile, and O and P. ASSESSMENT AND PLAN: Again, this is a very pleasant 66-year-old gentleman who was admitted with abdominal pain, "explosive diarrhea" and nausea and vomiting. Originally thought to have small-bowel obstruction, after a CT was completed showing small bowel thickening. A long discussion was held as well as complete workup that has all been negative. At this time, it was discussed in depth with the patient as we will go forth with an upper endoscopy and colonoscopy for further evaluation with biopsy to rule out microscopic colitis. The patient has been kept on Flagyl and ciprofloxacin for possible infectious colitis. We will also obtain a celiac panel as well as TSH with the next blood draw for complete workup. Further recommendations will be given status post upper endoscopy and colonoscopy. Thank you for this consultation. KING NOLAN APRN FOR LILLIAN LUGO MD The patient was discussed and we opted to go with conservative management. Please refer to my inpatient consultation note Lillian Lugo MD PATIENT'S NAME: MELY TYSON [facility] AGE: 66 Y [address] ROOM: [place] [address] LOCATION: [facility] ADMIT DATE: 03/30/2017 Consultation DISCHARGE DATE: FAMILY PHYSICIAN: FRAN RAPHAEL APRN ATTENDING PHYSICIAN: CLEMENCIA CURRIE/charlee /[id number] d: 03/31/172011 t: 04/06/17 1351, CONSULTATION REPORT
--- NOTE | ~2017-03-30 | HP ---
PATIENT'S NAME: [facility] AGE: 66 Y [address] ROOM: [place] [address] LOCATION: [facility] [place] ADMIT DATE: 03/30/2017 History & Physical DISCHARGE DATE: FAMILY PHYSICIAN: PHYSICIAN, UNKNOWN ATTENDING PHYSICIAN: CLEMENCIA CURRIE DATE OF SERVICE: CHIEF COMPLAINT: Abdominal pain. HISTORY OF PRESENT ILLNESS: A 66-year-old gentleman with a past medical history of hypertension and insulin-dependent diabetes mellitus, and also has history of laparotomy and bowel resection in the past, presented to [facility] day before yesterday with abdominal pain. This pain was located in the center of the abdomen, radiating to the both sides, "gassy in nature," and present all the time for past three weeks. Highest intensity of 10/10 and currently at 5/10, associated with a three-week history of loose, watery diarrhea as well as one- week history of emesis, which he is saying is resolving at this point associated with fever and chills in the past, but no further fever is present. On further inquiry, he says that he is still passing gas and having explosive diarrhea. He denied any headache, any trouble with the eyes, any trouble swallowing, any chest pain, shortness of breath, cough, sputum production, extremity swelling, or PND. REVIEW OF SYSTEMS: All other systems reviewed were negative, except what is mentioned in the HPI. ALLERGIES: THE PATIENT IS ALLERGIC TO BETADINE AND CEFDINIR. PAST MEDICAL HISTORY: 1. Insulin-dependent diabetes mellitus. 2. COPD. 3. Obstructive sleep apnea. 4. Hypertension. 5. Peripheral vascular disease. 6. Gout. SOCIAL HISTORY: He quit smoking several years ago. FAMILY HISTORY: Positive for coronary artery disease. PATIENT'S NAME: [facility] AGE: 66 Y [address] ROOM: [place] [address] LOCATION: [facility] [place] ADMIT DATE: 03/30/2017 History & Physical DISCHARGE DATE: FAMILY PHYSICIAN: PHYSICIAN, UNKNOWN ATTENDING PHYSICIAN: CLEMENCIA CURRIE MEDICATIONS: Being reconciled right now. PHYSICAL EXAMINATION: VITAL SIGNS: Reviewed and were all unremarkable. GENERAL: No acute distress. Alert and oriented x3. HEENT: Head: Atraumatic and normocephalic. Eyes: Nonicteric. No pallor. Oropharynx, OG tube was present. Dry mucous membranes. CARDIOVASCULAR: S1 and S2. No murmurs or gallops or rubs. LUNGS: Clear to auscultation bilaterally. NECK: No thyromegaly or lymphadenopathy was present. Right carotid endarterectomy incision christy was present. ABDOMEN: Obese, distended, and hypertympanitic. Tender in all quadrants, rebound tenderness was present. No rigidity was noted. Hypoactive bowel sounds. EXTREMITIES: No clubbing, cyanosis, or edema. PSYCHIATRIC: Normal affect, mood, and speech. NEUROLOGICAL: Cranial nerves II through XII were intact. No motor or sensory deficits. SKIN: No blemishes or rashes were noted. MUSCULOSKELETAL: No muscle tenderness or joint swelling. ENDOCRINE: No thyromegaly or myxedema was noted. LYMPHATICS: No lymphangiitis or lymphadenopathy was noted. DIAGNOSTIC STUDIES: A CAT scan at the outside facility was done, which did show developing small bowel obstruction. LABORATORY WORK: Impressive for hemoglobin of 17, white count of 17, and platelets of 291. CMP was remarkable for creatinine of 1.2. ASSESSMENT: 1. Small bowel obstruction. 2. Nausea and vomiting and diarrhea. 3. Hypertension. 4. Acute kidney injury. 5. Chronic obstructive pulmonary disease. 6. Obstructive sleep apnea. 7. Peripheral vascular disease, status post right CEA. 8. History of gout. PLAN: We are going to admit this patient. Given the history of three weeks of PATIENT'S NAME: [facility] AGE: 66 Y [address] ROOM: [address] [address] LOCATION: [facility] [place] ADMIT DATE: 03/30/2017 History & Physical DISCHARGE DATE: FAMILY PHYSICIAN: PHYSICIAN, UNKNOWN ATTENDING PHYSICIAN: CLEMENCIA CURRIE diarrhea and emesis, it appears that this diarrhea is infectious in nature. He might possibly be developing an ileus now, but his abdominal exam findings are worrisome, given tenderness. We will continue NG suction. Intravenous fluids will be started. We are going to start ciprofloxacin and Flagyl. Stool will be sent for the C. diff. We will have General Surgery involved early in this case, given he had previous abdominal surgeries and lack of improvement after NG placement. Sliding-scale insulin for diabetes. His ADI has resolved by now after fluid administration in the outside hospital. Hypokalemia is also present, and we will replace potassium as needed. The patient is full code. MD TING JARRELL/modl /[id number] D: [id number] T: [id number] HISTORY & PHYSICAL
[~2017-03-30 05:00] MED LIST: ADVIL200 MG PO; CLARITIN10 MG PO; DUONEB INH; GLUCOPHAGE500 MG PO; LOPRESSOR25 MG PO; PROTONIX40 MG PO; SPIRIVA HANDIHA1 KIT INH; SYMBICORT 16010.2 GM INH; TRICOR 160 MG160 MG PO; TYLENOL EXTRA500 MG PO; TYLENOL PM EX-1 EACH PO
[2017-03-30 06:43] LABS: HEMATOCRIT 45.7 % (37.0-53.0); HEMOGLOBIN 15.7 g/dL (11.0-16.0); MCH 31.7 pg (27.0-34.0); MCHC 34.4 gm/dL (32.0-36.5); MCV 92.3 fl (83.0-98.0); MPV 9.1 fl (9.4-12.4); PLATELET COUNT 217 K/uL (150-450); RBC 4.95 M/uL (3.50-5.50); RDW-CV 12.4 % (11.9-14.6)
[2017-03-30 06:45] LABS: WBC 16.4 K/uL (4.0-11.0)
[2017-03-30 07:02] LABS: ALBUMIN 2.7 gm/dL (3.5-5.0); ANION GAP 11.3 (10.0-19.0); CALCIUM 7.7 mg/dL (8.5-10.5); POTASSIUM 3.3 mMol/L (3.7-5.1); TOTAL BILIRUBIN 0.5 mg/dL (0.0-1.5); TOTAL PROTEIN 6.1 g/dL (6.0-8.4)
[2017-03-30 07:30] LABS: ABSOLUTE NEUTROPHIL CT (ANC) 13.9 K/uL (1.4-9.0); BANDED NEUTROPHIL # 0.3 K/uL (0.0-0.1); BANDED NEUTROPHILS % 2 %; LYMPHOCYTE % 6 %; MONOCYTE # 1.1 K/uL (0.0-1.0); SEGMENTED NEUTROPHIL # 13.6 K/uL (1.4-9.0); SEGMENTED NEUTROPHIL % 83 %
--- NOTE | 2017-03-30 19:46 | NUR ---
HX ABDOMINAL SURGERY, APPY, CHOLECYSECTOMY, HERNIATION OF ABDOMIN WITH MESH PLACEMENT, RESECTION WITH 40 CM REMOVED. FROM [facility]. HX SLEEP APNEA, HTN, DIABETES TYPE 2. ALLERGIES TO PERCOCET, CEFDINIR, AND BETADINE. TRANSFERRED FROM [facility] WITH OG TUBE IN PLACE. UPPER ABDOMINAL PAIN POSSIBLE SBO.
--- NOTE | 2017-03-30 19:50 | NUR ---
OG REMOVED BY HOSPITALIST DR WITT CONSULT ORDER TO PLACE NG TUBE TO LIS. PLACEMENT VERIFIED VIA KUB. 400 ML OUTPUT BUT PATIENT TOOK IN SIGNIFICANT AMOUNT OF ICE. BM X3 DIARRHEA, WATERY CONSISITENCY. STOOL SAMPLE OBTAINED WITH LABS RAN. IV IN PLACE FROM TRANSFER IN LEFT HAND. IV PLACED LEFT WRIST. INTERMITTENT ANTIBIOTICS AND IV POTASSIUM GIVEN. 1.5L LR GIVEN WITH NS TO FOLLOW AT 75ML/HR. UP WITH SBA. NPO WITH ICE CHIPS. VSS HYPERTENSIVE AFEBRILE. CPAP PER HOME SETTINGS.
--- NOTE | 2017-03-30 23:16 | NUR ---
Patient declined to wear Cpap machine at this time, due to having a NG tube placed in his nose.
--- NOTE | 2017-03-31 04:47 | NUR ---
Significant Event:Patient uncomfortable, states it is hard to not sleep in his own bed. NG to LIS with 350 out. Up ad-akira in room. Denies the need for pain meds. C-Diff, O+P, Giardia all negative. A/0, cooperative with cares. Follow up:Continue to monitor.
[2017-03-31 05:55] LABS: BASOPHIL # 0.1 K/uL (0.0-0.2); BASOPHIL % 0.5 %; EOSINOPHIL # 0.3 K/uL (0.0-0.5); EOSINOPHIL % 2.3 %; HEMATOCRIT 42.5 % (37.0-53.0); HEMOGLOBIN 14.2 g/dL (11.0-16.0); IMMATURE GRANULOCYTE # 0.1 K/uL (0.0-0.3); IMMATURE GRANULOCYTE % 0.6 %; LYMPHOCYTE # 1.6 K/uL (0.8-4.0); LYMPHOCYTE % 11.3 %; MCH 30.8 pg (27.0-34.0); MCHC 33.4 gm/dL (32.0-36.5); MCV 92.2 fl (83.0-98.0); MONOCYTE # 1.1 K/uL (0.0-1.0); MPV 8.9 fl (9.4-12.4); NEUTROPHIL % 77.3 %; NRBC % 0 /100WBC (0-0.00); PLATELET COUNT 221 K/uL (150-450); RBC 4.61 M/uL (3.50-5.50); RDW-CV 12.4 % (11.9-14.6); WBC 14.2 K/uL (4.0-11.0)
[2017-03-31 06:18] LABS: ALBUMIN 2.7 gm/dL (3.5-5.0); ALK PHOS 45 IU/L (33-138); ALT 19 IU/L (12-78); ANION GAP 10.7 (10.0-19.0); AST 15 IU/L (10-40); BLOOD UREA NITROGEN 13 mg/dL (6-24); CALCIUM 8.2 mg/dL (8.5-10.5); CHLORIDE 106 mMol/L (96-110); CO2 25 mMol/L (22-32); CREATININE 0.8 mg/dL (0.6-1.3); POTASSIUM 3.7 mMol/L (3.7-5.1); SODIUM 138 mMol/L (135-145); TOTAL BILIRUBIN 0.5 mg/dL (0.0-1.5); TOTAL PROTEIN 6.2 g/dL (6.0-8.4)
--- NOTE | 2017-03-31 09:55 | NUR ---
Significant Event:A/O X 3. Ambulates in llanos ad akira. SBP 120's HR 80's. O2 sats > 90% on room air. NPO, except for ice chips and gum. NG to R) nare. Upper abdomen across the top is tender, but not requiring pain medicine. Passing flatus, not nauseas. NG output is womack. IVF infusing. updated and supportive at the bedside. Follow up:advance diet???
--- NOTE | 2017-03-31 16:15 | NUR ---
Met with patient and at bedside today. Introduced myself and explained my role with the CM department. 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 He is independent of all of his ADL's at home. He asked me when he will be ready for discharge. I told him that we will know more after he has the colonoscopy tomorrow. He and his understand that we will know more after the test tomorrow. He also asked me whether I thought that him taking all three of his meds, HTN pill, diabetic pill, and high cholesterol pill at the same time could have "burned a hole" in his stomach that has caused these problems. I told him that I cannot answer this question for him, but I will forward that on to one of the physicians/CSO's following and will have them talk with him. I informed MARCELO Hopkins of his question and she will go in and talk with him about this. Will continue to follow and offer supports.
--- NOTE | 2017-04-01 03:02 | NUR ---
Significant Event: PT AO. VSS ON RA, AFEBRILE. WEARS CPAP AT HS. ACCUCHECKS Q 6HR, NO SSI NEEDED. TOLERATED CLEAR LIQUID DIET- AVOID REDS AND PURPLES. NS RUNNING @ 75ML/HR TO L HAND. WILL HAVE ABDOMINAL XRAY IN AM. AMBULATES IN ROOM INDEPENDENTLY. C/O SOME ABDOMINAL DISCOMFORT, NO PRNs GAVE THOUGH. HAVING LOOSE STOOLS. C DIFF WAS NEGATIVE. AT BEDSIDE. Follow up: SCOPE CANCELLED FOR TODAY, POSSIBLE RESCHEDULE? MONITOR STOOLS
[2017-04-01 06:19] LABS: BLOOD UREA NITROGEN 12 mg/dL (6-24); CALCIUM 7.9 mg/dL (8.5-10.5); CHLORIDE 109 mMol/L (96-110); CO2 22 mMol/L (22-32); CREATININE 0.8 mg/dL (0.6-1.3); SODIUM 139 mMol/L (135-145)
[2017-04-01 06:21] LABS: ANION GAP 12.1 (10.0-19.0); POTASSIUM 4.1 mMol/L (3.7-5.1)
[2017-04-01 07:03] LABS: BASOPHIL # 0.1 K/uL (0.0-0.2); BASOPHIL % 0.6 %; EOSINOPHIL # 0.3 K/uL (0.0-0.5); EOSINOPHIL % 2.1 %; HEMATOCRIT 40.7 % (37.0-53.0); HEMOGLOBIN 14.2 g/dL (11.0-16.0); IMMATURE GRANULOCYTE # 0.1 K/uL (0.0-0.3); IMMATURE GRANULOCYTE % 0.8 %; LYMPHOCYTE # 1.4 K/uL (0.8-4.0); LYMPHOCYTE % 10.3 %; MCHC 34.9 gm/dL (32.0-36.5); MCV 91.7 fl (83.0-98.0); MONOCYTE # 1.1 K/uL (0.0-1.0); MONOCYTE % 8.2 %; NEUTROPHIL # (ANC) 10.6 K/uL (1.4-9.0); NRBC % 0 /100WBC (0-0.00); PLATELET COUNT 237 K/uL (150-450); RBC 4.44 M/uL (3.50-5.50); RDW-CV 12.2 % (11.9-14.6); WBC 13.6 K/uL (4.0-11.0)
--- NOTE | 2017-04-01 16:41 | NUR ---
Significant Event: Patient alert and oriented. Up ad akira in the room and ambulated in the hallway. Patient NPO except ice chips in orally. Patient states having a large, loose BM this morning and then a small to moderate "formed pieces" this afternoon that looked "normal". Patient states having minimal abdominal discomfort and c/o intermittent bloating. Accuchecks have been 107 and 98 with no sliding scale insulin needed. Continues on IV Cipro and Flagyl. Follow up: Encourage ambulation.
--- NOTE | 2017-04-02 05:16 | NUR ---
Significant Event: Pt alert and oriented. UP ad akiar. No c/o pain, just intermitent bloating. Remains NPO with ice chips. Passing gas. Q6h accuchecks accuchecks. Pt c/o his IV itching during the Cipro infusion, please monitor this morning dose. Pleasant and cooperative with cares. Follow up:
--- NOTE | 2017-04-02 14:49 | NUR ---
Significant Event: Pt denies pain. Up ad akira in room. Passing flatus and had a mod formed bm. Clear liquid diet and tolerating well. IV site itches when IV Cipro is infused, aware and ordered PO Benadryl x1 but pt states it is tolerable and refused it. Continue q 6 hr accuchecks per order. VS stable. Follow up:
--- NOTE | 2017-04-02 15:42 | NUR ---
Met with patient and at bedside today. Patient has questions and concerns about the medications he has been receiving here in the hospital being covered under his Medicare or VA benefits. Patient does not have Medicare Part D. I consulted with NATY Perez. I explained to patient that his Medicare Part A and his supplemental BCBS will cover his medications in the hospital because he has been inpatient status. I explained to him that Medicare will not cover any oral meds if he had only been in as observation. Patient voiced his understanding of this. Per patient and , possible discharge to home tomorrow. Will continue to follow and offer supports.
--- NOTE | 2017-04-03 04:07 | NUR ---
Significant Event: Patient alert and oriented X4. On full liquid diet. Still on every 6 hour accuchecks. IV in L) wrist infiltrated at shift change, Kojo from PACU started a new one in AC. Saline locked. Up ad akira in room. at bedside. Hoping to go home today. Denies pain. Passing gas and having BMs. Vitals stable and on room air. Follow up: Monitor BM
[2017-04-03] MEDS ORDERED: ASPIR-LOW81 MG PO (11:27)
[2017-04-03] MEDS ORDERED: TRULICITY0.75 MG/0. SUB-Q (11:27)
[2017-04-03] MEDS ORDERED: PROAIR HFA8.5 GM INH (11:27)
--- NOTE | 2017-04-03 13:00 | NUR ---
DISCHARGE: Pt. was explained discharge instructions and low-residue diet. Educated on soft diet and no diary or raw vegetables. IV removed by primary RN. Left with all belongings and prescriptions. Verbalized understanding of teaching, no questions or concerns. Taken to front door by aide and virtual nurse. Driven home by daughter.
--- NOTE | 2017-04-03 13:39 | NUR ---
Met with MARCELO Whitmore this morning and informed that patient will discharge to home today. Patient and deny any discharge needs.
== END 2017-04-03 13:00 | disposition disaster alternative care site (69) | DRG 389 ==
LOC: GMSU 05:47
PROVIDERS: Family Medicine; Physician Assistant; ADMIT Internal Medicine
DX: K56.69 Other intestinal obstruction (principal); N17.9 Acute kidney failure, unspecified; J44.9 Chronic obstructive pulmonary disease, unspecified; K76.0 Fatty (change of) liver, not elsewhere classified; I10 Essential (primary) hypertension; E87.6 Hypokalemia; E66.01 Morbid (severe) obesity due to excess calories; G47.33 Obstructive sleep apnea (adult) (pediatric); I73.9 Peripheral vascular disease, unspecified; Z68.38 Body mass index [BMI] 38.0-38.9, adult; E11.9 Type 2 diabetes mellitus without complications; Z87.891 Personal history of nicotine dependence; Z82.49 Family history of ischemic heart disease and other diseases of the circulatory system; Z88.8 Allergy status to other drugs, medicaments and biological substances; R19.7 Diarrhea, unspecified; Z79.84 Long term (current) use of oral hypoglycemic drugs
CPT/HCPCS: C9113; J0744; J1644; J3480; J7030; J7040; J7050; J7120